=== PATIENT | female | born 1990 | race Caucasian/White ===

== ENCOUNTER 2016-12-30 04:07 | Emergency (ER) | payer SELFPAY ==
[2016-12-30 04:12] VITALS: BP 107/71; PULSE 79; TEMP 97.8; BMI 22.3
--- NOTE | 2016-12-30 04:14 | PDOC ---
History of Present Illness - General Chief Complaint: Pain, Acute Stated Complaint: RT FLANK PAIN Time Seen by Provider: 12/30/16 04:13 - History of Present Illness Initial Comments: 12/30/16 04:22 This 26-year-old otherwise healthy female presents with right flank pain for the last 3 hours. Patient was awakened at 1 AM with pain, accompanied by nausea. She had one episode of a small amount of vomitus. Pain persisted and patient presents here. Patient has history of renal colic 2 years ago when she lived in [place]. During that episode, she was treated in the emergency room with fluids/analgesics and CT was performed (patient unaware of the results of the CT; she was told she had a kidney stone. Over the next 24 hours, pain resolved. Patient never recovered any stone from voided urine; she did not follow-up with urologist. Patient moved to this area 3 weeks ago. Patient had chills overnight but no known fever. She denies dysuria or gross hematuria. She had transient sensation of urinary urgency without inability to void when at home but has been able to provide a urine sample here. No other significant past medical history. On no medications No known ALLERGIES Past History - Past Medical History Allergies/Adverse Reactions: Allergies Allergy/AdvReac Type Severity Reaction Status Date / Time No Known Allergies Allergy Unverified 12/30/16 04:10 Home Medications: Ambulatory Orders Oxycodone HCl/Acetaminophen [Percocet 5-325 mg Tablet] 1 tab PO Q6H PRN #6 tablet MDD 2 tabs 12/30/16 - Psycho/Social/Smoking Cessation Hx Suicidal Ideation: No Smoking History: Current every day smoker Have you smoked in the past 12 months: Yes Number of Cigarettes Smoked Daily: 0 Information on smoking cessation initiated: Yes Drug/Substance Use Hx: Yes (MARIJUANA) Review of Systems - Review of Systems Able to Perform ROS?: Yes Comments:: 12 point review of systems is negative except for what is noted in the history of present illness *Physical Exam - Vital Signs Last Vital Signs Temp Pulse Resp BP Pulse Ox 97.8 F 79 16 107/71 99 12/30/16 04:10 12/30/16 04:10 12/30/16 04:10 12/30/16 04:10 12/30/16 04:10 - Physical Exam Comments: GENERAL: Adult female, alert and oriented 3, in mild distress secondary to right flank pain HEAD: Normal with no signs of trauma. EYES: PERRLA, EOMI, sclera anicteric, conjunctiva clear. ENT: Ears normal, nares patent, oropharynx clear without exudates. Dry mucous membranes. NECK: Normal range of motion, supple without lymphadenopathy, JVD, or masses. LUNGS: Breath sounds equal, clear to auscultation bilaterally. No wheezes, and no crackles. HEART:Regular rate and rhythm, normal S1 and S2 without murmur, rub or gallop. ABDOMEN:.normal bowel sounds No guarding,tenderness or rebound.No masses No distention. Moderate right CVA/flank tenderness EXTREMITIES: Normal range of motion, no edema. No clubbing or cyanosis. No erythema, or tenderness. NEUROLOGICAL: Cranial nerves II through XII grossly intact. Normal speech. No focal neurological deficits. SKIN: Warm, Dry, normal turgor, no rashes or lesions noted. Progress Note - Progress Note Progress Note: 1 L normal saline/30 mg Toradol IV/4 mg Zofran IV administered Urinalysis /PGU sent for evaluation Patient reports resolution of symptoms after IV hydration/Toradol/Zofran. Urinalysis dipstick negative/PGU negative. In light of prompt resolution of symptoms and negative urinalysis, patient will be discharged with instructions to drink plenty of fluids. She should use ibuprofen/naproxen/acetaminophen as needed for [id number] pain. Small (#6 ) prescription for Percocet 5/325 to be used up to every 6 hours for severe pain will also be transmitted to her pharmacy. She should return here for further workup if she has persistent severe pain or develops vomiting/fever also , she will be given referral information for urologist (Dr. Ragland). She should follow up with him if she has persistent mild flank pain. The patient has recently moved to this area and does not yet have general doctor. She states that she will research finding PMD in the near future. *DC/Admit/Observation/Transfer Diagnosis at time of Disposition: Renal colic on right side - Discharge Dispostion Disposition: HOME Condition at time of disposition: Stable - Prescriptions Prescriptions: Oxycodone HCl/Acetaminophen [Percocet 5-325 mg Tablet] 1 tab PO Q6H PRN #6 tablet MDD 2 tabs PRN Reason: Severe Pain - Referrals Referrals: Antony Ragland MD [Staff Physician] - - Patient Instructions Printed Discharge Instructions: Kidney Stones -- Adult Additional Instructions: Drink plenty of water Strain all urine and save any stones for analysis Ibuprofen/naproxen/acetaminophen as needed for [id number] pain Percocet 5/325 as needed for severe pain (maximum dose 2 tablets per day) Return to ER if you have persistent severe pain or vomiting Follow-up with Dr. Ragland (urologist) if you have persistent mild flank/mid back pain - Post Discharge Activity Work/School Note: Back to Work
[2016-12-30] MEDS ORDERED: SODIUM CHLORIDE 1,000 ML IV STA (04:21)
[2016-12-30] MEDS ORDERED: KETOROLAC TROMETHAMINE 30 MG/1 ML VIAL IVPUSH ONE (04:21)
[2016-12-30] MEDS ORDERED: KETOROLAC TROMETHAMINE 30 MG/1 ML VIAL ONE (04:24)
[2016-12-30] MEDS ORDERED: ONDANSETRON 4 MG/2 ML VIAL IVPUSH ONE (04:28)
[2016-12-30] MEDS ORDERED: ONDANSETRON 4 MG/2 ML VIAL ONE (04:34)
[2016-12-30 05:08] LABS: URINE APPEARANCE SLCLOUDY; URINE BILIRUBIN NEGATIVE (NEGATIVE); URINE BLOOD NEGATIVE (NEGATIVE); URINE COLOR YELLOW; URINE GLUCOSE (UA) NEGATIVE (NEGATIVE); URINE KETONE NEGATIVE (NEGATIVE); URINE LEUK ESTERASE NEGATIVE (NEGATIVE); URINE NITRITE NEGATIVE (NEGATIVE); URINE PROTEIN NEGATIVE (NEGATIVE)
== END 2016-12-30 05:46 | disposition home or self-care (01) ==
LOC: FER 04:07
PROC: 3E0333Z Introduction of Anti-inflammatory into Peripheral Vein, Percutaneous Approach (ICD-10-PCS; principal; 2016-12-30)
PROC: 3E033GC Introduction of Other Therapeutic Substance into Peripheral Vein, Percutaneous Approach (ICD-10-PCS; 2016-12-30)
PROC: 3E0337Z Introduction of Electrolytic and Water Balance Substance into Peripheral Vein, Percutaneous Approach (ICD-10-PCS; 2016-12-30)
DX: N23 Unspecified renal colic (principal); F17.210 Nicotine dependence, cigarettes, uncomplicated
CPT/HCPCS: 81003; 84703; 99282-25